=== PATIENT | male | born 1995 | race African-American/Black ===

== ENCOUNTER 2019-07-15 03:12 | Emergency (ER) | payer SELFPAY ==
[~2019-07-15] VITALS: Ht 182.9 cm; Wt 117.9 kg
--- NOTE | 2019-07-15 03:15 | NUR ---
ED Nurse Note: ERMD AT BEDSIDE.
--- NOTE | 2019-07-15 03:19 | NUR ---
ED Nurse Note: PT UTE RA 826 C/O LEFT KNEE INJURY S/P BASKETBALL AT 1999 YESTEDAY. PT STATES SHOOTING PAIN 9/10, UNABLE TO BEAR WEIGHT. FRIEND AT BEDSIDE.
[2019-07-15] MEDS ORDERED: Ketorolac 60mg Inj IM ONE (03:30)
--- NOTE | 2019-07-15 03:32 | Emergency Room Report ---
History of Present Illness General Chief Complaint: Lower Extremity Injury Source: Patient Present Illness HPI Patient is a 23-year-old male who presents after increased knee pain. He reports having injury while playing basketball before he reports feeling a pop to his knee. Noticed increased pain to the area after injury. He had been unable to ambulate.Patient denies prior injuries to the area. Denies any other locations of injury.Injury occurred approximately 8 hours prior to arrival. Allergies: Coded Allergies: No Known Allergies (Unverified , 07/15/19) Patient History Past Medical History: see triage record Reviewed Nursing Documentation: PMH: Agreed; PSxH: Agreed Nursing Documentation-PMH Past Medical History: No Stated History Review of Systems All Other Systems: negative except mentioned in HPI Physical Exam Vital Signs Date Time Temp Pulse Resp B/P (MAP) Pulse Ox O2 Delivery O2 Flow Rate FiO2 07/15/19 03:11 98.8 84 18 132/96 (108) 96 Room Air Sp02 EP Interpretation: reviewed, normal General Appearance: normal inspection, well appearing, no apparent distress, alert, GCS 15 Head: atraumatic ENT: normal ENT inspection, hearing grossly normal, normal voice Neck: normal inspection, full range of motion, supple, no bony tend Respiratory: normal inspection, lungs clear, normal breath sounds, no respiratory distress, no retraction, no wheezing Cardiovascular #1: regular rate, rhythm, no edema Gastrointestinal: normal inspection, normal bowel sounds, non tender, soft, no guarding, no hernia Genitourinary: no CVA tenderness Musculoskeletal: back normal, swelling - left knee, decreased ROM, laxity to the ACL on anterior drawer Neurologic: alert, motor strength/tone normal, oriented x3, responsive, speech normal, normal inspection Psychiatric: normal inspection, judgement/insight normal, mood/affect normal Medical Decision Making Diagnostic Impression: Primary Impression: Left knee sprain ER Course Patient presented for left knee pain. Differential diagnosis include was not limited to knee sprain, contusion, fracture, dislocation among others. Patient has a benign exam and does not appear to require any laboratory testing at this time. Patient had x-ray imaging of the left knee which showed no evidence of acute fracture. Given the patient's laxity to the ligaments of his knee appears that he has ACL sprain. Patient was advised to have reexam in the next few days as well to continue icing the area. He was placed in a knee immobilizer and given crutches.Patient was advised to keep the area elevated. He was advised to follow-up with orthopedics for further evaluation and treatment of his ACL. The patient is advised to follow up with primary care doctor in 1-2 days orthopedic referral. Patient is advised to return if any worsening condition or if any changes in status that are concerning. This report is dictated with [employer] quality analyst software which may occasionally lead to discrepancies related to use of this software. Last Vital Signs Date Time Temp Pulse Resp B/P (MAP) Pulse Ox O2 Delivery O2 Flow Rate FiO2 07/15/19 03:11 98.8 84 18 132/96 (108) 96 Room Air Status: unchanged Disposition: HOME, SELF-CARE Condition: Stable Scripts Hydrocodone Bit/Acetaminophen 5-325* (NORCO 5-325*) 1 Each Tablet 1 TAB ORAL Q6H PRN for For Pain, #10 TAB 0 Refills Prov: Jewel Del Real MD 07/15/19 Ibuprofen* (MOTRIN*) 600 Mg Tablet 600 MG ORAL Q8H PRN for For Pain, #30 TAB 0 Refills Prov: Jewel Del Real MD 07/15/19 Jewel Del Real MD Jul 15, 2019 03:32
--- NOTE | 2019-07-15 03:35 | NUR ---
ED Nurse Note: XR AT BEDSIDE.
--- NOTE | 2019-07-15 04:15 | NUR ---
ED Nurse Note: PATIENT STATES PAIN DID NOT CHANGE WITH MED. REQUESTED SOMETHING FOR PAIN. ERMD NOTIFIED. ERMD ORDERED FOR NORCO.
[2019-07-15] MEDS ORDERED: ACETAMINOPHEN500 M3 ORAL ×2 (04:16)
[2019-07-15] MEDS ORDERED: IBUPROFEN600 MG ORAL (04:16)
[2019-07-15] MEDS ORDERED: NORCO 5-325 TA1 EACH ORAL (04:17)
--- NOTE | 2019-07-15 04:20 | NUR ---
ED Nurse Note: APPLIED KNEE IMMOBILIZER AND PROVIDED CRUTCHES. PT VERBALIZED UNDERSTANDING OF USING CRUTCHES.
[2019-07-15 04:27] VITALS: BP 129/84
--- NOTE | 2019-07-15 04:27 | NUR ---
ER DISCHARGE NOTE: Patient is cleared to be discharged per ERMD, pt is aox4, on room air, with stable vital signs. pt was given dc and prescription instructions, pt was able to verbalize understanding, pt id band removed without complications. pt is able to ambulate with steady gait. pt took all belongings accompanied by friend.
[2019-07-15] MEDS ORDERED: HYDROcodone/Acetamin 5/325 tab ORAL ONE (04:30)
--- NOTE | 2019-07-15 09:24 | Diagnostic Imaging Report ---
Indications: Reason For Exam: PAIN Technique: 4 views of the left knee Comparison: None Findings: No acute fractures. No dislocations. Joint spaces are preserved. No radiopaque foreign body. Normal mineralization. Impression: No acute process
== END 2019-07-15 04:27 | disposition home or self-care (01) ==
LOC: EDBD 03:12 → EMR 03:36
DX: S83.92XA Sprain of unspecified site of left knee, initial encounter (principal); Y93.67 Activity, basketball; Y92.9 Unspecified place or not applicable
CPT/HCPCS: 29505; 96372; 99283